=== PATIENT | male | born 2000 | race Caucasian/White ===

== ENCOUNTER 2021-03-31 03:25 | Emergency (ER) | payer OTHER ==
[2021-03-31] MEDS ORDERED: Lidocaine 1% w/Epinephrine 1:100K 20 ML VIAL ONE (03:49)
[2021-03-31] MEDS ORDERED: Ketorolac Tromethamine 30 MG/ML VIAL ONE (04:00)
[2021-03-31] MEDS ORDERED: Acetaminophen 500 MG TAB ONE (04:01)
[2021-03-31] MEDS ORDERED: Boostrix 0.5 ML (Tdap) VIAL ONE (04:28)
== END 2021-03-31 04:49 | disposition home or self-care (01) ==
LOC: CSHERS 03:25
DX: L05.01 Pilonidal cyst with abscess (principal); I10 Essential (primary) hypertension
CPT/HCPCS: 10080; 87070; 87205; 90471; 90715; 96372; J1885